=== PATIENT | male | born 1975 ===

== ENCOUNTER 2022-03-02 02:19 | Emergency (ER) | payer SELFPAY ==
[2022-03-02 02:43] VITALS: BP 110/68; PULSE 71; TEMP 97.9; BMI 29.2
== END 2022-03-02 06:22 | disposition home or self-care (01) ==
LOC: JER 02:19
DX: F10.10 Alcohol abuse, uncomplicated (principal); Z59.00 Homelessness unspecified
CPT/HCPCS: 99283-25